=== PATIENT | male | born 1965 | race Caucasian/White ===

== ENCOUNTER 2018-11-16 18:10 | Emergency (ER) | payer OTHER ==
[2018-11-16 18:20] VITALS: BP 171/91; PULSE 90; RESP 16; TEMP 98.2
--- NOTE | 2018-11-16 19:03 | ED ---
Skin/Abscess/FB HPI - General Chief complaint: Skin/Abscess/Foreign Body Stated complaint: red bump on back Time Seen by Provider: 11/16/18 18:43 Source: patient, RN notes reviewed, old records reviewed Mode of arrival: ambulatory Limitations: no limitations - History of Present Illness Initial comments: 53-year-old male presents emergency Department today with complaints of a area on his left lower back of redness. He reports that he is scratched at the area a few days ago. Patient reports that he believes he had a area of atypical mole removed and similar spot a few years ago. Patient states that he is concerned he needs on immunosuppressants and is concerned that seems to be biopsied to rule out cancer. Patient states he is previously seen a [facility]hemias Thakkar. Patient has no fevers chills or any other complaints. - Related Data Previous Rx's Medication Instructions Recorded Mupirocin 2% Oint [Bactroban 2% 1 applic TOPICAL TID #60 gm 11/16/18 Oint] Allergies Allergy/AdvReac Type Severity Reaction Status Date / Time adalimumab [From Humira] Allergy Unknown Verified 11/16/18 18:20 Review of Systems ROS Statement: Those systems with pertinent positive or pertinent negative responses have been documented in the HPI. ROS Other: All systems not noted in ROS Statement are negative. 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 History of Any Multi-Drug Resistant Organisms: None Reported Past Surgical History: No Surgical Hx Reported Past Psychological History: No Psychological Hx Reported Smoking Status: Never smoker Past Alcohol Use History: Occasional General Exam - General Exam Comments Initial Comments: Well-appearing 53-year-old male. Alert and oriented. No distress. Limitations: no limitations General appearance: alert, in no apparent distress Head exam: Present: atraumatic, normocephalic, normal inspection Eye exam: Present: normal appearance, PERRL, EOMI. Absent: scleral icterus, conjunctival injection, periorbital swelling ENT exam: Present: normal exam, mucous membranes moist Neck exam: Present: normal inspection. Absent: tenderness, meningismus, lymphadenopathy Respiratory exam: Present: normal lung sounds bilaterally. Absent: respiratory distress, wheezes, rales, rhonchi, stridor Cardiovascular Exam: Present: regular rate, normal rhythm, normal heart sounds. Absent: systolic murmur, diastolic murmur, rubs, gallop, clicks GI/Abdominal exam: Present: soft, normal bowel sounds. Absent: distended, tenderness, guarding, rebound, rigid Extremities exam: Present: normal inspection, full ROM, normal capillary refill. Absent: tenderness, pedal edema, joint swelling, calf tenderness Back exam: Present: normal inspection Neurological exam: Present: alert, oriented X3, CN II-XII intact Psychiatric exam: Present: normal affect, normal mood Skin exam: Present: warm, dry, intact, normal color, other (Patient has an evidence of an old scar over the right lower back. There is an area of abrasion that looks like Patient picked at the skin. There is some slight erythema around the site but no other symptoms. No significant tenderness. No fluctuation or bulging or swelling noted to the area.). Absent: rash Course Vital Signs 11/16/18 18:15 Temperature 98.2 F Pulse Rate 90 Respiratory 16 Rate Blood Pressure 171/91 O2 Sat by Pulse 99 Oximetry Medical Decision Making - Medical Decision Making Patient is a 53-year-old male who presents today over a bump on his lower back. He is concerned maybe cancerous. Hematology biopsied at this time. He has a area of guard tissue in the lower lumbar spine with a in abrasion in the middle. No significant erythema. No atypical signs or symptoms. Patient has requested to see physician. I had Dr. Parks he also examined the Patient. He agrees that would not biopsy was in the ER. We'll write the Patient for mupirocin ointment overtop of the abrasion and have him follow-up with dermatology. Disposition Clinical Impression: Abrasion of back, Scar tissue Disposition: HOME SELF-CARE Condition: Good Instructions (If sedation given, give patient instructions): Abrasion (ED) Additional Instructions: Patient advised to follow-up with dermatology or primary care doctor. Return to ED if any alarming signs or symptoms occur. Prescriptions: Mupirocin 2% Oint [Bactroban 2% Oint] 1 applic TOPICAL TID #60 gm Is patient prescribed a controlled substance at d/c from ED?: No Referrals: Nonstaff,Physician [Primary Care Provider] - 1-2 days Justin Velazquez MD [STAFF PHYSICIAN] - 1-2 days Time of Disposition: 19:10
== END 2018-11-16 19:22 | disposition home or self-care (01) ==
LOC: EC 18:10
DX: S30.810A Abrasion of lower back and pelvis, initial encounter (principal); L90.5 Scar conditions and fibrosis of skin; Z88.8 Allergy status to other drugs, medicaments and biological substances; X58.XXXA Exposure to other specified factors, initial encounter
CPT/HCPCS: 99283